=== PATIENT | female | born 1990 | race Caucasian/White ===

== ENCOUNTER 2018-11-29 17:05 | Inpatient (IN) | payer OTHER ==
[~2018-11-29] VITALS: Ht 154.9 cm; Wt 112.6 kg
--- NOTE | 2018-11-29 16:51 | PREAC ---
Date/Time of Note Date/Time of Note DATE: 11/29/18 TIME: 16:50 Anesthesia Eval and Record Evaluation Time Pre-Procedure Interview DATE: 11/29/18 TIME: 16:50 Age 28 Sex female NPO: 8 hrs Preoperative diagnosis term , prev Csection Planned procedure repeat Csection Past Medical History Past Medical History: None Surgery & Anesthesia Issues No known issue Meds Anticoagulation: No Beta Clemente within 24 hr: No Reason Beta Clemente not given: Pt. not on B-Clemente Meds reviewed: Yes Allergies Allergies Reviewed: Yes Labs/Studies Labs Reviewed: Reviewed by anesthesiologist test: Positive Pre-procedure Exam Airway: Adequate mouth opening, Adequate thyromental dist Mallampati: Mallampati III Teeth: Normal Lung: Normal Heart: Normal ASA Physical Status ASA physical status: 2 Emergency: None Planned Anesthetic Neuraxial: Spinal Planned Pain Management Sub-arachniod narcotics, Parenteral pain med, Other neuraxial med Pre-operative Attestations Prior to commencing anesthesia and surgery, the patient was re-evaluated, there was verification of: *The patient's identity *The results of appropriate recent lab work and preoperative vital signs *The above evaluation not changing prior to induction *Anesthetic plan, risk benefits, alternative and complications discussed with patient/family; questions answered; patient/family understands, accepts and wishes to proceed. LUCIANO LUZ MD Nov 29, 2018 16:51
[~2018-11-29 17:05] MED LIST: DIPHENHYDRAMINE 50 MG INJ IV PRN; FENTAnyl 50 MCG/ML VIAL IV PRN; HYDROmorphONE 0.5 MG/0.5 ML SYG IV PRN; HYDROmorphONE 1 MG/5 ML IV SYRINGE IV PRN; KETOROLAC 30 MG INJ IV PRN; NALOXONE (0.4 MG/ML) INJ IV PRN; ONDANSETRON 4 MG INJ IV PRN; ZOLPIDEM 5 MG TAB PO PRN
[2018-11-29] MEDS ORDERED: LACTATED RINGER'S 1,000 ML IV SCH (17:40)
[2018-11-29] MEDS ORDERED: ONDANSETRON 4 MG INJ IV STA (17:40)
[2018-11-29 17:44] VITALS: Ht 154.9 cm; Wt 112.6 kg
[2018-11-29] MEDS ORDERED: OXYTOCIN 30 UNITS/LR 500 ML IV PRN (18:00)
[2018-11-29] MEDS ORDERED: FAMOTIDINE 20 MG INJ IV ONE (18:00)
[2018-11-29] MEDS ORDERED: MISOPROSTOL 200 MCG TAB PR PRN (18:00)
[2018-11-29] MEDS ORDERED: METOCLOPRAMIDE 10 MG INJ IV ONE (18:00)
[2018-11-29] MEDS ORDERED: METHYLERGONOVINE 0.2 MG INJ IM PRN (18:00)
[2018-11-29] MEDS ORDERED: CARBOPROST 250 MCG INJ IM PRN (18:00)
[2018-11-29] MEDS ORDERED: CEFAZOLIN 2 GM/50 ML (PMX) 50 ML IVPB SCH (18:00)
[2018-11-29] MEDS ORDERED: AZITHROMYCIN 500MG/NS (PMX) 250 ML IV SCH (19:00)
[2018-11-29] MEDS ORDERED: OXYTOCIN 10 UNIT INJ ONE (19:27)
[2018-11-29] MEDS ORDERED: morphine SULFATE/PF (10 MG/10 ML) INJ ONE (19:27)
[2018-11-29] MEDS ORDERED: OXYTOCIN 30 UNITS/LR 500 ML IV ONE (19:29)
--- NOTE | 2018-11-29 21:26 | HP ---
Date/Time of Note Date/Time of Note DATE: 11/29/18 TIME: 21:22 OB - History Hx of Present Free Text/Dictation 28 years old 3 para 2001 with previous delivery at 39 weeks and 3 days desires repeat delivery. She states good movement. She denies nausea, vomiting, shortness of breath, chest pain, headache, visual changes, vaginal bleeding or LOF. Chief Complaint: Scheduled for repeat delivery Estimated Due Date: Dec 03, 2018 : 3 Para: 2 Spontaneous : 0 Therapeutic : 0 Care: Good Care Ultrasounds: Normal mid trimester US Obstetrical Complications: None Medical Complications: None Past Family/Social History * Past Medical, Surgical, Family and Obstetric Histories reviewed from chart. Blood Type: B+ Rubella: immune RPR/VDRL: Negative GBS Status: Negative HBsAG: Negative OB Admission Exam Vital Signs Vital Signs Blood pressure 128/78, pulse rate 70/minutes, respiratory rate 16/minutes, temperature 98.6 Physical Exam HEENT: WNL Heart: Rhythm Normal Lungs: Clear Abdomen: WNL Extremities: Normal Reflexes: Normal Membranes: Intact Heart Rate: 140's Accelerations: Accelerations Present Decelerations: No Decelerations Varibility: Moderate Contractions on Admission: >10 Minutes Apart Last 72 hours Lab Results CBC & BMP 11/29/18 17:55 OB Assessment/Plan Other plan: 28-year-old 3 para 2001 with obesity, previous delivery at 39 weeks and 3 days desires repeat delivery - FHR: No sign of metabolic acidosis- Category I - Continuous EFM, toco - CBC, blood type and screen - Please see the orders - B+/Rubella: Immune - GBS: Negative The risk of delivery including but not limited to bleeding, infection, injury to other organs (bowel, bladder, ureter, vessels, nerves), injury to fetus, blood transfusion, blood transfusion related infection, risk of anesthesia, adhesion, needs for future , removal of uterus or any other indicated surgery, increased risk of infection due to obesity, deep vein thromboses, pulmonary emboli discussed with the patient and her . She expressed understanding. All of her questions were answered. She signed the informed consent. PHYSICIAN'S VERIFICATION OF INFORMED CONSENT The patient and her counseled regarding the procedure, its indications, risks, potential complications and alternatives and any questions were answered. Consent was obtained. PLANNED PROCEDURE/TREATMENT: delivery with possible using vacuum/forceps and any other indicated surgery PHYSICIAN'S VERIFICATION OF INFORMED CONSENT FOR BLOOD TRANSFUSION: There is a reasonable possibility that blood transfusion will be necessary as a result of the patient's procedure. I have discussed the following with the patient/patient's legal sales account representative: An explanation of the benefits and ris ks of the transfusion of blood or blood products and the possible alternatives. All questions have been answered to the patient's satisfaction. INFORMED CONSENT:The patient has been informed of: The nature of the proposed care, treatment, services, medications, interventions or procedures. Potential benefits, risks or side effects, including potential problems related to recuperation. The likelihood of achieving care treatment and service goals. Reasonable alternatives to the proposed care, treatment and service. The relevant risks, benefits and side effects related to alternatives, incl uding the possible results of not receiving care, treatment and services. When indicated, any limitations on the confidentiality of information learned from or about the patient. If appropriate, the risks, benefits and alternatives of the drugs to be used for sedation/analgesia including moderate sedation. If appropriate, patient has been provided information on the risks, benefits and alternatives to the transfusion of blood and/or blood products. If appropriate, patient has been provided information regarding the [place] Blood Act. SHAISTA DIA Nov 29, 2018 21:26
[2018-11-29] MEDS ORDERED: LABETALOL HCL 20MG INJ ONE (22:39)
--- NOTE | 2018-11-29 23:04 | OPR ---
Operative Report Planned Procedure Procedure date Nov 29, 2018 Procedure(s) Repeat low transverse delivery Performed by see signature line Concrete Mason: JOCY JEWELL MD Anesthesiologist: LUCIANO LUZ MD Pre-procedure diagnosis 28 years old 3 para 2001 with previous delivery and obesity at 39 weeks and 3 days desires repeat delivery [id number] Anesthesia Type: [id number] spinal Post-Procedure Post-procedure diagnosis 28 years old 3 para 2001 with previous delivery and obesity at 39 weeks and 3 days desires repeat delivery Findings 1. Normal uterus, fallopian tubes and ovaries 2. Viable female in cephalic presentation. 8 at one minute and 9 in 5 minutes. Weight: 7 pounds 14 ounces. Time of delivery: 22:04 3. Placenta with three vessel cord 4. Amniotic fluid - Clear Estimated Blood Loss: 600 - 700 mls Specimen(s) none Grafts/Implant(s) none Complication(s) none Pt Condition post procedure: stable Disposition: PACU Procedure Description INDICATION AND HISTORY: A 28 years old 3 para 2001 with previous delivery and obesity at 39 weeks and 3 days desires repeat delivery. The risk of delivery including but not limited to bleeding, infection, injury to other organs (bowel, bladder, ureter, vessels, nerves), injury to fetus, blood transfusion, blood transfusion related infection, risk of anesthesia, adhesion, needs for future , removal of uterus or any other indicated surgery was discussed with the patient and her family. She expressed understanding. All of her questions were answered. She signed the informed consent. DESCRIPTION OF OPERATION: The patient was taken to the operating room, where she was identified and the procedure was verified. The patient received two gram of Ancef 30 minutes prior to surgery. Spinal anesthesia was placed. The patient placed in the dorsal supine position with a left tilt. The heart rate was 135 bpm. The patient was then prepped and draped in the normal sterile fashion. A Pfannenstiel skin incision was made and carried down to the fascia with Bovie. The fascia was incised in the midline and the fascial incision was carried laterally with Barnes scissors. The superior portion of the fascial incision was then grasped with Guille clamps and tented up and dissected off the underlying rectus muscle with sharp dissection. The lower portion of the fascial incision was then made in a similar fashion. The rectus muscle was and the peritoneum was entered. The peritoneal incision was then stretched and an Bernabe retractor was inserted. The utero-vesical peritoneal reflection was incised transversely and the bladder flap was reflected inferiorly.Then, an incision was made in the lower uterine segment in a transverse fashion with a knife and extended bluntly. The was delivered atraumatically in cephalic presentation with the above findings, vacuum used to assist delivery of head. The umbilical cord was clamped and cut. The neonatology resuscitation team was present and the baby was handed to them. A cord blood sample was obtained for further evaluation. The placenta and membrane, which appeared normal were Removed. The uterus was exteriorized and cleared of all clot and debris. The uterus was then closed in a two layer fashion with 0-Monocryl. At the time of closure, hemostasis was noted. The gutters were irrigated. The peritoneum was reapproximated with 3-0 Vicryl. The muscle was reapproximated with 3-0 Vicryl. The fascia was approximated with 0-Vicryl in a running fashion. The subcutaneous tissue was re approximated with 3-0 vicryl in 3 layer. The skin was closed with 4-0 Monocryl. All instruments, sponges and needle counts were correct x3. The patient tolerated the procedure well. She transferred to the recovery room in stable condition. SHAISTA DIA Nov 29, 2018 23:04
[2018-11-29] MEDS: OXYTOCIN 30 UNITS/LR 500 ML IV SCH (23:16)
--- NOTE | 2018-11-29 23:56 | DELSUM ---
Delivery Summary A-C Datetime Report Generated by CPN: 11/29/2018 23:55 DELIVERY PERSONNEL Cellar Pumper: Herring, Wandy MATERNAL INFORMATION Delivery Anesthesia: Spinal Medications in Delivery: see anesthesia Delivery QBL (ml): 500 Placenta Cultured: No Maternal Complications: Other Other Maternal Complications: OBESITY; PREVIOUS C/S LABOR SUMMARY EDC: 12/03/2018 00:00 No. Babies in Womb: 1 Attempted: No Labor Anesthesia: None LABOR INFORMATION Reason for Induction: Not Applicable Oxytocin: N/A Group B Beta Strep: Negative Antibiotics # of Doses: 2 Antibiotics Time of Last Dose: 11/29/2018 20:30 Steroids Given: None Reason Steroids Not Administered: Not Applicable MEMBRANES Membranes Rupture Method: Artificial Rupture of Membranes: 11/29/2018 22:03 Length of Rupture (hr): 0.02 Amniotic Fluid Color: Bloody Amniotic Fluid Amount: Small STAGES OF LABOR Stage 3 hr: 0 Stage 3 min: 1 CSECTION DELIVERY Primary Indication: Repeat Elective CSection Urgency: Non Elective CSection Incidence: Repeat Labor: No Labor Elective: Nonelective CSection Incision: Lower Uterine Transverse BABY A INFORMATION Delivery Date/Time: 11/29/2018 22:04 Method of Delivery: Born in Route : No : N/A Forceps: N/A Vacuum Extraction: Successful Shoulder Dystocia : N/A ASSISTED DELIVERY BABY A Indication for Assisted Delivery: ASSIST WITH HEAD REMOVAL Catheter Prior to Procedure: Yes Station Vacuum/Forcep Apply: C/S Vacuum Number of Pulls: 1 Vacuum Number of PopOffs: 0 Vacuum Maximum Pressure Obtained: 100 Vacuum Finisher Operator: [employer] Total Time Vacuum Applied: 20 SECONDS Vacuum/Forceps Comment: VACUUM USED DURING C/S; NO UC'S SHOULDER DYSTOCIA BABY A Infant Delivery Date/Time: 11/29/2018 22:04 PRESENTATION/POSITION BABY A Presentation: Cephalic Cephalic Presentation: Vertex Breech Presentation: N/A PLACENTA INFORMATION BABY A Placenta Delivery Time : 11/29/2018 22:05 Placenta Method of Delivery: Manual Removal Placenta Status: Delivered SCORES BABY A Heart Rate 1 min: >100 bpm Resp Effort 1 min: Good Cry Reflex Irritability 1 min: Cough/Sneeze/Pulls Away Muscle Tone 1 min: Active Motion Color 1 min: Blue/Pale Resuscitation Effort 1 min: Tactile Stimulation SCORE 1 MIN: 8 Heart Rate 5 min: >100 bpm Resp Effort 5 min: Good Cry Reflex Irritability 5 min: Cough/Sneeze/Pulls Away Muscle Tone 5 min: Active Motion Color 5 min: Body [place], Extremit Blue Resuscitation Effort 5 min: Tactile Stimulation SCORE 5 MIN: 9 INFANT INFORMATION BABY A Gestational Age at Delivery: 39.3 Gestational Status: Full Term- 39- 40.6 Weeks Infant Outcome : Liveborn Condition : Stable Infant Sex: Female IDENTIFICATION/MEDS BABY A ID Band Number: [id number] ID Band Location: Right Leg; Left Arm Sensor Applied: Yes Sensor Number: [id number] Sensor Location : Cord Clamp Vitamin K Given : Not Given Erythromycin Given: Not Given WEIGHT/LENGTH BABY A Infant Birthweight (gm): 3570 Weight (lb): 7 Weight (oz): 14 Length (in): 20.00 Infant Length (cm): 50.80 CORD INFORMATION BABY A No. Cord Vessels: 3 Nuchal Cord : N/A Nuchal Cord- Other: CORD AROUND BODY Cord Blood Taken: Yes Suction: Mouth; Nose ASSESSMENT BABY A Complications: None Physical Findings at Delivery: Within Normal Limits Infant Respirations: Appears Normal Watershed Tender/ALS Called : No Care By: RT; Con SARABIA Transferred To: Remains with Mother
[2018-11-30] VITALS (10 sets, daily range): BP systolic 107–138; BP diastolic 59–83; PULSE 70–100; RESP 18
[2018-11-30] MEDS: OXYTOCIN 30 UNITS/LR 500 ML IV SCH
[2018-11-30] MEDS: DEXTROSE 5%-LR 1,000 ML IV SCH ×3 (02:10→18:10)
[2018-11-30] MEDS ORDERED: OXYTOCIN 30 UNITS/LR 500 ML IV SCH (02:10)
[2018-11-30] MEDS ORDERED: MISOPROSTOL 200 MCG TAB PR PRN (02:30)
[2018-11-30] MEDS ORDERED: MAGNESIUM HYDROXIDE 30ML CUP PO PRN (02:30)
[2018-11-30] MEDS ORDERED: METHYLERGONOVINE 0.2 MG INJ IM PRN (02:30)
[2018-11-30] MEDS ORDERED: OXYTOCIN 30 UNITS/LR 500 ML IV PRN (02:30)
[2018-11-30] MEDS ORDERED: METHYLERGONOVINE 0.2 MG TAB PO PRN (02:30)
[2018-11-30] MEDS ORDERED: CARBOPROST 250 MCG INJ IM PRN (02:30)
[2018-11-30] MEDS: CEFAZOLIN 2 GM/50 ML (PMX) 50 ML IVPB SCH ×3 (06:31→21:57)
[2018-11-30] MEDS: LANOLIN HPA 1 PKT TOP PRN (06:36)
[2018-11-30] MEDS: IBUPROFEN 800 MG TAB PO SCH ×2 (08:52→21:57)
[2018-11-30] MEDS: SENNA/DOCUSATE NA (8.6MG/50MG) TAB PO SCH ×2 (09:07→20:44)
[2018-11-30] MEDS ORDERED: DIPHTH/TET/ACEL PERTUSS (ADULT) 0.5 ML VIAL IM* ONE (11:00)
[2018-11-30] MEDS ORDERED: HYDROCODONE/APAP (5/325) TAB NGT PRN (11:00)
[2018-11-30] MEDS: HYDROCODONE/APAP (5/325) TAB GTB SCH (21:57)
[2018-12-01] MEDS: DEXTROSE 5%-LR 1,000 ML IV SCH (02:10)
[2018-12-01 05:52] VITALS: BP 110/66; PULSE 82; RESP 18
[2018-12-01] MEDS: IBUPROFEN 800 MG TAB PO SCH ×3 (06:34→21:35)
[2018-12-01] MEDS: HYDROCODONE/APAP (5/325) TAB GTB SCH ×3 (06:34→21:35)
[2018-12-01] MEDS: CEFAZOLIN 2 GM/50 ML (PMX) 50 ML IVPB SCH (06:34)
[2018-12-01 07:50] VITALS: BP 107/66; PULSE 74; RESP 18
--- NOTE | 2018-12-01 09:08 | PAC ---
Date/Time of Note Date/Time of Note DATE: 12/01/18 TIME: 09:08 Post-Anesthesia Notes Post-Anesthesia Note Last documented vital signs Vital Signs Date Temp Pulse Resp B/P (MAP) Pulse Ox O2 O2 Flow FiO2 Time Delivery Rate 12/01/18 98.6 82 18 110/66 Room Air 05:52 (81) 11/30/18 98 20:10 Activity: WNL Respiratory function: WNL Cardiovascular function: WNL Mental status: Baseline Pain reasonably controlled: Yes Hydration appropriate: Yes Nausea/Vomiting absent: Yes LUCIANO LUZ MD Dec 01, 2018 09:08
[2018-12-01] MEDS: SENNA/DOCUSATE NA (8.6MG/50MG) TAB PO SCH ×2 (09:18→21:34)
[2018-12-01] MEDS ORDERED: INFLUENZA VIRUS VACCINE 0.5 ML (DISPENSING) IM* ONE (10:00)
[2018-12-01 16:29] VITALS: BP 123/75; PULSE 91; RESP 18
[2018-12-01 19:50] VITALS: BP 118/64; PULSE 83; RESP 16
--- NOTE | 2018-12-01 22:10 | PN ---
Date/Time of Note Date/Time of Note DATE: 12/01/18 TIME: 22:08 OB Subjective Subjective Subjective Late entry note. Patient seen on 11/30/2018 POD#1 Patient is doing well. She denies nausea, vomiting, shortness of breath, chest pain, headache. She has been ambulating without difficulty, tolerating regular diet. Pain is well controlled on current medications OB Objective Objective Objective General: AAO X 3, comfortable, NAD, appropriate mood and affect. Heart: RRR +S1, +S2, no murmurs. Lungs: Clear to auscultation (B/L), no rales, rhonchi or wheezing. ABD: +BS. Soft, non-tender. Uterus 2 cm below umbilicus Incision: Clear, dry, intact. No erythema, drainage or induration. Flank: No CVA tenderness (B/L) LE: Mild edema. No clubbing, cyanosis, thigh or calf tenderness (B/L). Homans 'sign is negative OB Assessment/Plan Other plan: 28 years old 3 para 3003 s/p repeat delivery at 39 weeks and 3 days. POD#1 - AF, VSS - Baby is doing well, at bed side. She is bonding well - Contraception methods with R/B/A/FR discussed - Continue care SHAISTA DIA Dec 01, 2018 22:10
--- NOTE | 2018-12-01 22:11 | PN ---
Date/Time of Note Date/Time of Note DATE: 12/01/18 TIME: 22:10 OB Subjective Subjective Subjective POD#2 Patient is doing well. She denies nausea, vomiting, shortness of breath, chest pain, headache. She has been ambulating without difficulty, tolerating regular diet. Pain is well controlled on current medications OB Objective Objective Objective Vital Signs Date Temp Pulse Resp B/P (MAP) Pulse Ox O2 O2 Flow FiO2 Time Delivery Rate 12/01/18 97.8 91 18 123/75 Room Air 16:29 (91) 11/30/18 98 20:10 General: AAO X 3, comfortable, NAD, appropriate mood and affect. Incision: Clear, dry, intact. No erythema, drainage or induration. Flank: No CVA tenderness (B/L) LE: Mild edema. No clubbing, cyanosis, thigh or calf tenderness (B/L). Homans 'sign is negative Laboratory Tests Test 11/30/18 07:31 11/30/18 08:47 Lab Scanned Report REFERENCE LAB [id number] White Blood Count 10.8 10^3/ul Red Blood Count 3.76 10^6/ul Hemoglobin 10.0 g/dl Hematocrit 31.2 % Mean Corpuscular Volume 83.0 fl Mean Corpuscular Hemoglobin 26.6 pg Mean Corpuscular Hemoglobin Concent 32.1 g/dl Red Cell Distribution Width 13.2 % Platelet Count 229 10^3/UL Mean Platelet Volume 11.4 fl Immature Granulocytes % 0.700 % Neutrophils % 73.4 % Lymphocytes % 21.9 % Monocytes % 3.6 % Eosinophils % 0.1 % Basophils % 0.3 % Nucleated Red Blood Cells % 0.0 /100WBC Immature Granulocytes # 0.070 10^3/ul Neutrophils # 7.9 10^3/ul Lymphocytes # 2.4 10^3/ul Monocytes # 0.4 10^3/ul Eosinophils # 0.0 10^3/ul Basophils # 0.0 10^3/ul Nucleated Red Blood Cells # 0.0 10^3/ul OB Assessment/Plan Other plan: 28 years old 3 para 3003 s/p repeat delivery at 39 weeks and 3 days. POD#2 - AF, VSS - Baby is doing well, at bed side. She is bonding well - Contraception methods with R/B/A/FR discussed - Continue care - Discharge home tomorrow - Rx and instruction given - Follow up in one and 6 weeks SHAISTA DIA Dec 01, 2018 22:11
--- NOTE | 2018-12-01 22:13 | DS ---
Date/Time of Note Date/Time of Note DATE: 12/01/18 TIME: 22:11 Obstetrical Discharge Record Final Diagnosis Final Diagnosis: Term delivered Other Final Diagnosis 28 years old 3 para 3003 s/p repeat delivery at 39 weeks and 3 days. POD#2. course was unremarkable. She has been ambulating and tolerating regular diet. She is voiding without difficulty. Pain is controlled on current medication. - AF, VSS - Baby is doing well, at bed side. She is bonding well - Contraception methods with R/B/A/FR discussed - Continue care - Discharge home tomorrow - Rx and instruction given - Follow up in one and 6 weeks Section Section: Primary Primary Indication Breech presentation Condition on Discharge Physical Assessment Last Vitals: Vital Signs Date Temp Pulse Resp B/P (MAP) Pulse Ox O2 O2 Flow FiO2 Time Delivery Rate 12/01/18 97.8 91 18 123/75 Room Air 16:29 (91) 11/30/18 98 20:10 Voiding: Yes Bowel Movement: Yes Breast: Soft, non-tender Fundus: Firm Calf Tenderness: No Patient Condition: Stable SHAISTA DIA Dec 01, 2018 22:13
[2018-12-02 04:40] VITALS: BP 115/66; PULSE 80; RESP 16
[2018-12-02] MEDS: HYDROCODONE/APAP (5/325) TAB GTB SCH (06:14)
[2018-12-02] MEDS: IBUPROFEN 800 MG TAB PO SCH (06:14)
[2018-12-02 08:00] VITALS: BP 118/73; PULSE 94; RESP 20
[2018-12-02] MEDS: SENNA/DOCUSATE NA (8.6MG/50MG) TAB PO SCH (08:50)
[2018-12-02] MEDS ORDERED: DIPHTH/TET/ACEL PERTUSS (ADULT) 0.5 ML VIAL IM* ONE (09:00)
[2018-12-02] MEDS ORDERED: MEASLES,MUMPS,RUBELLA VACCINE INJ SC* ONE (09:00)
[2018-12-02] MEDS: LANOLIN HPA 1 PKT TOP PRN (12:37)
--- NOTE | 2018-12-03 15:14 | DELSUM ---
Delivery Summary A-C Datetime Report Generated by CPN: 12/03/2018 15:14 DELIVERY PERSONNEL Personal Care Aid: Herring, Wandy MATERNAL INFORMATION Delivery Anesthesia: Spinal Medications in Delivery: see anesthesia Delivery QBL (ml): 500 Placenta Cultured: No Maternal Complications: Other Other Maternal Complications: OBESITY; PREVIOUS C/S LABOR SUMMARY EDC: 12/03/2018 00:00 No. Babies in Womb: 1 Attempted: No Labor Anesthesia: None LABOR INFORMATION Reason for Induction: Not Applicable Oxytocin: N/A Group B Beta Strep: Negative Antibiotics # of Doses: 2 Antibiotics Time of Last Dose: 11/29/2018 20:30 Steroids Given: None Reason Steroids Not Administered: Not Applicable MEMBRANES Membranes Rupture Method: Artificial Rupture of Membranes: 11/29/2018 22:03 Length of Rupture (hr): 0.02 Amniotic Fluid Color: Bloody Amniotic Fluid Amount: Small STAGES OF LABOR Stage 3 hr: 0 Stage 3 min: 1 CSECTION DELIVERY Primary Indication: Repeat Elective CSection Urgency: Non Elective CSection Incidence: Repeat Labor: No Labor Elective: Nonelective CSection Incision: Lower Uterine Transverse BABY A INFORMATION Delivery Date/Time: 11/29/2018 22:04 Method of Delivery: Born in Route : No : N/A Forceps: N/A Vacuum Extraction: Successful Shoulder Dystocia : N/A ASSISTED DELIVERY BABY A Indication for Assisted Delivery: ASSIST WITH HEAD REMOVAL Catheter Prior to Procedure: Yes Station Vacuum/Forcep Apply: C/S Vacuum Number of Pulls: 1 Vacuum Number of PopOffs: 0 Vacuum Maximum Pressure Obtained: 100 Vacuum Night Assistant: Byliner Total Time Vacuum Applied: 20 SECONDS Vacuum/Forceps Comment: VACUUM USED DURING C/S; NO UC'S SHOULDER DYSTOCIA BABY A Infant Delivery Date/Time: 11/29/2018 22:04 PRESENTATION/POSITION BABY A Presentation: Cephalic Cephalic Presentation: Vertex Breech Presentation: N/A PLACENTA INFORMATION BABY A Placenta Delivery Time : 11/29/2018 22:05 Placenta Method of Delivery: Manual Removal Placenta Status: Delivered SCORES BABY A Heart Rate 1 min: >100 bpm Resp Effort 1 min: Good Cry Reflex Irritability 1 min: Cough/Sneeze/Pulls Away Muscle Tone 1 min: Active Motion Color 1 min: Blue/Pale Resuscitation Effort 1 min: Tactile Stimulation SCORE 1 MIN: 8 Heart Rate 5 min: >100 bpm Resp Effort 5 min: Good Cry Reflex Irritability 5 min: Cough/Sneeze/Pulls Away Muscle Tone 5 min: Active Motion Color 5 min: Body [place], Extremit Blue Resuscitation Effort 5 min: Tactile Stimulation SCORE 5 MIN: 9 INFANT INFORMATION BABY A Gestational Age at Delivery: 39.3 Gestational Status: Full Term- 39- 40.6 Weeks Infant Outcome : Liveborn Condition : Stable Infant Sex: Female IDENTIFICATION/MEDS BABY A ID Band Number: [id number] ID Band Location: Right Leg; Left Arm Sensor Applied: Yes Sensor Number: [id number] Sensor Location : Cord Clamp Vitamin K Given : Not Given Erythromycin Given: Not Given WEIGHT/LENGTH BABY A Infant Birthweight (gm): 3570 Weight (lb): 7 Weight (oz): 14 Length (in): 20.00 Infant Length (cm): 50.80 CORD INFORMATION BABY A No. Cord Vessels: 3 Nuchal Cord : N/A Nuchal Cord- Other: CORD AROUND BODY Cord Blood Taken: Yes Suction: Mouth; Nose ASSESSMENT BABY A Complications: None Physical Findings at Delivery: Within Normal Limits Infant Respirations: Appears Normal Chiropractic Neurologist/ALS Called : No Care By: RT; Con SARABIA Transferred To: Remains with Mother
== END 2018-12-02 15:14 | disposition home or self-care (01) | DRG 788 ==
LOC: L-D 17:05 → PP1 11-30 01:34
PROVIDERS: ADMIT Obstetrics & Gynecology; ATTEND Obstetrics & Gynecology
PROC: 10D00Z1 Extraction of Products of Conception, Low, Open Approach (ICD-10-PCS; principal; 2018-11-29 21:15)
DX: O65.5 Obstructed labor due to abnormality of maternal pelvic organs (principal); O34.211 Maternal care for low transverse scar from previous cesarean delivery; O99.214 Obesity complicating childbirth; E66.9 Obesity, unspecified; Z3A.39 39 weeks gestation of pregnancy; Z37.0 Single live birth
CPT/HCPCS: 85025; 85610; 85730; 86592; 86850; 86900; 86901; 87340; 90686; 90715; 99464; J0456; J0690; J1200; J2274; J2405; J2590; J2765; J7120; J7121